=== PATIENT | female | born 1975 | race Two or more races ===

== ENCOUNTER 2023-01-22 09:25 | Inpatient (IN) | payer OTHER ==
[~2023-01-22] VITALS: Ht 172.7 cm; Wt 86.2 kg
[2023-01-29] MEDS ORDERED: IBU800 MG PO (06:56)
[2023-01-29] MEDS ORDERED: LEVSIN/SL0.125 MG SL (06:57)
[2023-01-29] MEDS ORDERED: CIPRO500 MG PO (06:58)
[2023-01-29] MEDS ORDERED: MAXFE CAPLET1 EAC1 PO (06:58)
== END 2023-01-29 11:51 | disposition home or self-care (01) | DRG 743 ==
LOC: O/R 01-27 07:55 → OB/GYN 01-27 12:30
PROVIDERS: ADMIT Obstetrics & Gynecology Gynecology; ATTEND Obstetrics & Gynecology Gynecology
PROC: 0UT70ZZ Resection of Bilateral Fallopian Tubes, Open Approach (ICD-10-PCS; 2023-01-27)
PROC: 0UT90ZZ Resection of Uterus, Open Approach (ICD-10-PCS; principal; 2023-01-27 16:30)
DX: D25.1 Intramural leiomyoma of uterus (principal); D25.2 Subserosal leiomyoma of uterus; D25.0 Submucous leiomyoma of uterus; Z20.822 Contact with and (suspected) exposure to COVID-19